=== PATIENT | female | born 1935 | race Caucasian/White ===

== ENCOUNTER → 2016-12-18 | Outpatient (CLI) | payer MEDICARE, MEDICAID ==
[~2016-12-18] MED LIST: ALPR0.25 PO; ASPI-650 PO; ENAL5TAB PO; GABA100C8 PO; HYDR-3138 PO; LACT1CAP40 PO; LEVO250T23 PO; LUTE20TA PO; MULT-82 PO; OMEP-110 PO; ONDA4TAB7 PO; POLY17PO5 PO; SIMV10TA PO; TIOT18CA IH
== END | disposition home or self-care (01) ==
LOC: CFH 09:50
PROVIDERS: ATTEND Family Medicine
DX: Z13.820 Encounter for screening for osteoporosis (principal); M81.0 Age-related osteoporosis without current pathological fracture; N95.8 Other specified menopausal and perimenopausal disorders
CPT/HCPCS: 77080

== ENCOUNTER → 2017-04-09 | Outpatient (CLI) | payer MEDICARE, MEDICAID ==
[~2017-04-09] MED LIST changes: +GABA-826 PO; -GABA100C8 PO; -HYDR-3138 PO; +HYDR-3237 PO; +MULT-224 PO; -MULT-82 PO
== END | disposition home or self-care (01) ==
LOC: CARD 08:18
PROVIDERS: ATTEND Family Medicine
DX: R53.1 Weakness (principal); M25.569 Pain in unspecified knee; J44.9 Chronic obstructive pulmonary disease, unspecified; I10 Essential (primary) hypertension
CPT/HCPCS: 95886; 95908

== ENCOUNTER → 2017-04-15 | Outpatient (CLI) | payer MEDICARE, MEDICAID | END | disposition home or self-care (01) | LOC: RAD 10:27 | PROVIDERS: ATTEND Family Medicine | DX: M85.88 Other specified disorders of bone density and structure, other site (principal) ==

== ENCOUNTER → 2018-02-22 | Outpatient (CLI) | payer MEDICARE, MEDICAID | END | disposition home or self-care (01) | LOC: CFH 07:39 | PROVIDERS: ATTEND Physician Assistant Medical | DX: R15.9 Full incontinence of feces (principal); R14.0 Abdominal distension (gaseous); K64.9 Unspecified hemorrhoids; Z90.49 Acquired absence of other specified parts of digestive tract | CPT/HCPCS: 74245 ==

== ENCOUNTER 2018-05-14 19:30 | Emergency (ER) | payer MEDICARE, MEDICAID ==
[~2018-05-14] VITALS: Ht 152.4 cm; Wt 46.0 kg
[2018-05-14 21:26] VITALS: BP 136/78
== END 2018-05-14 21:29 | disposition home or self-care (01) ==
LOC: ED 20:11
DX: S80.01XA Contusion of right knee, initial encounter (principal); S70.01XA Contusion of right hip, initial encounter; I10 Essential (primary) hypertension; J44.9 Chronic obstructive pulmonary disease, unspecified; K21.9 Gastro-esophageal reflux disease without esophagitis; Z88.5 Allergy status to narcotic agent; Z79.82 Long term (current) use of aspirin; W19.XXXA Unspecified fall, initial encounter; Y93.89 Activity, other specified; Y92.89 Other specified places as the place of occurrence of the external cause; Y99.8 Other external cause status
CPT/HCPCS: 70450; 71045; 72125; 99284

== ENCOUNTER 2018-10-26 12:59 | Emergency (ER) | payer MEDICARE, MEDICAID ==
[~2018-10-26] VITALS: Ht 152.4 cm; Wt 46.0 kg
[~2018-10-26 12:59] MED LIST changes: -MULT-224 PO; +MULT-642 PO
[2018-10-26 13:40] LABS: BASOPHILS # (AUTO) 0.03 x10^3/uL (0-0.1); BASOPHILS % (AUTO) 0 % (0-1); EOSINOPHILS # (AUTO) 0.17 x10^3/uL (0-0.4); EOSINOPHILS % (AUTO) 2 % (1-7); LYMPHOCYTES # (AUTO) 1.85 x10^3/uL (1-3.4); LYMPHOCYTES % (AUTO) 27 % (22-44); MD NO; MEAN CORPUSCULAR HGB CONC 32.8 g/dL (32.4-35.8); MEAN CORPUSCULAR VOLUME 88.3 fL (80-100); MEAN PLATELET VOLUME 7.2 fL (7.4-10.4); MONOCYTES # (AUTO) 0.51 x10^3/uL (0.2-0.8); MONOCYTES % (AUTO) 8 % (2-9); NEUTROPHILS # (AUTO) 4.27 x10^3/uL (1.8-6.8); NEUTROPHILS % (AUTO) 63 % (42-75); PLATELET COUNT 265 x10^3/uL (130-400); RED CELL DISTRIBUTION WIDTH 14.3 % (9.6-15.2)
[2018-10-26 13:50] LABS: ALBUMIN 3.7 g/dL (3.4-5.0); ANION GAP 5 mmol/L (5-15); CALCIUM 9.9 mg/dL (8.5-10.1); CHLORIDE 108 mmol/L (98-107); CREATININE 0.85 mg/dL (0.55-1.02)
--- NOTE | 2018-10-26 13:50 | NUR ---
FROM LOBBY TO ROOM AT THIS TIME
[2018-10-26] MEDS ORDERED: METHOCARBAMOL 750 MG TABLET ONE (14:27)
[2018-10-26] MEDS ORDERED: FENTANYL PF 100 MCG/2ML ONE ×2 (14:28→17:15)
[2018-10-26] MEDS ORDERED: METHOCARBAMOL 750 MG TABLET PO ONE (14:30)
[2018-10-26] MEDS: FENTANYL PF 100 MCG/2ML IVPush PRN ×2 (14:41→17:18)
--- NOTE | 2018-10-26 14:48 | NUR ---
PT. IS A & O X 4 WITH C/O ABD. PAIN THAT BEGAN WEDNESDAY. IV ACCESS WAS ESTABLISHED IN THE PT.'S RAC. PT. WAS MEDICATED FOR PAIN ORDERED. PT.'S IV WAS DIFFICULT TO FLUSH AND THE PT. COMPLAINED OF DISCOMFORT. RN RESTARTED PT.'S IV IN HER LAC. PT. IS AMBULATORY AND STATES MOST OF HER PAIN IS IN HER BACK. LUNGS ARE CTA. MM ARE PINK AND MOIST WITH PULSES +2 THROUGHOUT. PT.'S ABD. IS SOFT AND FLAT WITH BS + X 4 QUADS. PT. WAS TAKEN TO CT SCAN.
--- NOTE | 2018-10-26 15:58 | NUR ---
Pt transported on gurney to [facility]. All safety measures in place.
--- NOTE | 2018-10-26 16:36 | NUR ---
Pt back to room from CT. REED.
[2018-10-26] MEDS ORDERED: OMNIPAQUE 350 MG/ML, 100ML BOTTLE ONE (16:40)
--- NOTE | 2018-10-26 17:34 | NUR ---
Pt provided pain medication per EMAR after ambulating to restroom 1 person assist and having "too much back pain" to walk back. Pt placed back into [facility] with 2 person assist and lift. Pt discussed plan of care with doctor. Pt states she would like to "go home with pain medications" to ED MD.
--- NOTE | 2018-10-26 18:12 | NUR ---
Patient given discharge instructions and they have confirmed that they understand the instructions. Patient pushed to discharge in wheelchair. Pt left with discharge information, prescription, and all personal belongings. Pt has family coming to pick her up. Pt states she does not live alone and she has help at home.
[2018-10-26 18:13] VITALS: BP 150/83
== END 2018-10-26 18:15 | disposition home or self-care (01) ==
LOC: ED 15:57
DX: M51.34 Other intervertebral disc degeneration, thoracic region (principal); M51.37 Other intervertebral disc degeneration, lumbosacral region; R91.8 Other nonspecific abnormal finding of lung field; J44.9 Chronic obstructive pulmonary disease, unspecified; K21.9 Gastro-esophageal reflux disease without esophagitis; F41.1 Generalized anxiety disorder; I10 Essential (primary) hypertension; Z90.49 Acquired absence of other specified parts of digestive tract; Z90.710 Acquired absence of both cervix and uterus; Z88.6 Allergy status to analgesic agent; Z88.5 Allergy status to narcotic agent
CPT/HCPCS: 36415; 71045; 71275; 72110; 72128; 72131; 80048; 82040; 85025; 85379; 96374; 99284; J3010; Q9967

== ENCOUNTER 2018-11-02 06:03 | Day surgery (SDC) | payer MEDICARE, MEDICAID ==
[~2018-11-02] VITALS: Ht 149.9 cm; Wt 45.7 kg
[2018-11-02] MEDS ORDERED: SODIUM CHLORIDE 0.9% 1,000 ML IV SCH (06:34)
[2018-11-02 06:37] VITALS: BP 154/83
[2018-11-02] MEDS ORDERED: NALOXONE 1 MG/ML, 2ML ONE (07:54)
[2018-11-02] MEDS ORDERED: FLUMAZENIL 0.1 MG/1 ML, 5ML ONE (07:54)
[2018-11-02] MEDS ORDERED: FENTANYL PF 100 MCG/2ML ONE (07:54)
[2018-11-02] MEDS ORDERED: MIDAZOLAM 1 MG/ML, 5ML ONE (07:54)
== END 2018-11-02 11:45 | disposition home or self-care (01) ==
LOC: OUT 06:03
PROVIDERS: ATTEND Family Medicine
DX: C34.11 Malignant neoplasm of upper lobe, right bronchus or lung (principal); Z88.5 Allergy status to narcotic agent; J43.9 Emphysema, unspecified; K21.9 Gastro-esophageal reflux disease without esophagitis; I11.0 Hypertensive heart disease with heart failure; I50.9 Heart failure, unspecified; E78.5 Hyperlipidemia, unspecified; M81.0 Age-related osteoporosis without current pathological fracture; F41.9 Anxiety disorder, unspecified; F33.1 Major depressive disorder, recurrent, moderate; F07.81 Postconcussional syndrome; Z99.81 Dependence on supplemental oxygen; Z90.49 Acquired absence of other specified parts of digestive tract; Z90.710 Acquired absence of both cervix and uterus; Z98.890 Other specified postprocedural states; Z87.891 Personal history of nicotine dependence; Z79.899 Other long term (current) drug therapy; Z86.79 Personal history of other diseases of the circulatory system
CPT/HCPCS: 32405; 71045; 77012; 88305; 99156; 99157; J2250; J3010; J2310

== ENCOUNTER 2018-11-07 08:20 | Emergency (ER) | payer MEDICARE, MEDICAID ==
[~2018-11-07] VITALS: Ht 147.3 cm; Wt 44.4 kg
[2018-11-07] MEDS ORDERED: KETOROLAC 30 MG/1 ML IVPush ONE (09:00)
[2018-11-07] MEDS ORDERED: SODIUM CHLORIDE FLUSH 10ML SYR IVF ONE (09:00)
[2018-11-07] MEDS ORDERED: KETOROLAC 30 MG/1 ML ONE (09:24)
[2018-11-07 09:30] LABS: BASOPHILS # (AUTO) 0.03 x10^3/uL (0-0.1); BASOPHILS % (AUTO) 0 % (0-1); EOSINOPHILS # (AUTO) 0.16 x10^3/uL (0-0.4); EOSINOPHILS % (AUTO) 2 % (1-7); LYMPHOCYTES # (AUTO) 2.09 x10^3/uL (1-3.4); LYMPHOCYTES % (AUTO) 25 % (22-44); MD NO; MEAN CORPUSCULAR HEMOGLOBIN 28.8 pg (27.0-34.8); MEAN CORPUSCULAR HGB CONC 32.6 g/dL (32.4-35.8); MEAN CORPUSCULAR VOLUME 88.3 fL (80-100); MEAN PLATELET VOLUME 7.5 fL (7.4-10.4); MONOCYTES # (AUTO) 0.67 x10^3/uL (0.2-0.8); MONOCYTES % (AUTO) 8 % (2-9); NEUTROPHILS # (AUTO) 5.53 x10^3/uL (1.8-6.8); NEUTROPHILS % (AUTO) 65 % (42-75); PLATELET COUNT 278 x10^3/uL (130-400); RED BLOOD COUNT 5.08 x10^6/uL (3.82-5.3); RED CELL DISTRIBUTION WIDTH 13.9 % (9.6-15.2)
[2018-11-07 09:54] LABS: ALANINE AMINOTRANSFERASE 14 U/L (12-78); CALCIUM 10.1 mg/dL (8.5-10.1)
[2018-11-07 09:57] LABS: ALKALINE PHOSPHATASE 143 U/L (45-117); BILIRUBIN,TOTAL 0.4 mg/dL (0.2-1.0); TROPONIN I < 0.015 ng/mL (0.000-0.045)
[2018-11-07 10:06] LABS: ANION GAP 6 mmol/L (5-15); CHLORIDE 105 mmol/L (98-107)
--- NOTE | 2018-11-07 10:19 | NUR ---
REPORT FROM JOSEFINA DO. PT RESTING IN ROOM. VSS. ALL RESULTS BACK AT THIS TIME. CHART UP FOR RECHECK.
--- NOTE | 2018-11-07 10:30 | NUR ---
REPORT FROM DIEGO RN PATIENT [facility] C[facility] IN PL[facility]. WOB WNL, 98% ON RA. BREATH SOUNDS TO BASES BILATERALLY REPORTS CONTINED LATERAL CHEST PAIN AT 6/10-PROVIDER MADE AWARE UPDATED ON ESTIMATED POC
[2018-11-07] MEDS ORDERED: OMNIPAQUE 350 MG/ML, 75ML BOTTLE ONE (11:15)
--- NOTE | 2018-11-07 11:15 | NUR ---
TO CT SCAN. MORPHINE DELAYED PATIENT DENIES ACUTE PAIN AT THE MOMENT AND WILL BE UNMONITORED FOR SCAN
[2018-11-07] MEDS ORDERED: MORPHINE SULFATE 4 MG/ML, 1ML ONE (11:37)
--- NOTE | 2018-11-07 12:00 | NUR ---
SYRUP SHED SUPERVISOR MAKING ARRANGEMENTS WITH PATIENT FOR SAFE DISCHARGE PATIENT REPORTING PAIN NOW 7/[address] PRIOR TO DISCHARGE. TO DISCUSS WITH WITH
[2018-11-07] MEDS: MORPHINE SULFATE 4 MG/ML, 1ML IVPush PRN ×2 (12:06→12:07)
[2018-11-07] MEDS ORDERED: HYDROcodone/APAP 5/325 TABLET PO STA (12:13)
[2018-11-07] MEDS ORDERED: HYDROcodone/APAP 5/325 TABLET ONE (12:14)
--- NOTE | 2018-11-07 12:22 | NUR ---
PATIENT CALLED DAUGHTER TO COME PICK PATIENT UP [employer] TO MEDICATE PATIENT WITH 5MG OF NORCO FOR 7/10 LATERAL CHEST PAIN PATIENT NOT TAKING ANY NARCOTICS AT THIS TIME. DID TAKE 10MG OF PERCOCET FROM [id number] SO NOT NAIVE TO NARCOTICS
[2018-11-07 12:29] VITALS: BP 132/54
== END 2018-11-07 12:31 | disposition home or self-care (01) ==
LOC: ED 10:25
DX: R07.9 Chest pain, unspecified (principal); R07.1 Chest pain on breathing; R09.1 Pleurisy; J44.9 Chronic obstructive pulmonary disease, unspecified; K21.9 Gastro-esophageal reflux disease without esophagitis; F41.1 Generalized anxiety disorder; I10 Essential (primary) hypertension; E11.9 Type 2 diabetes mellitus without complications; Z88.6 Allergy status to analgesic agent; Z88.5 Allergy status to narcotic agent; Z90.49 Acquired absence of other specified parts of digestive tract; Z90.710 Acquired absence of both cervix and uterus; Z96.649 Presence of unspecified artificial hip joint
CPT/HCPCS: 36415; 71045; 71275; 80053; 84484; 85025; 93005; 96374; 99284; J1885; Q9967

== ENCOUNTER → 2018-11-15 | Outpatient (CLI) | payer MEDICARE, MEDICAID | END | disposition home or self-care (01) | LOC: PETCFH 12:46 | PROVIDERS: ATTEND Family Medicine | DX: C34.91 Malignant neoplasm of unspecified part of right bronchus or lung (principal) | CPT/HCPCS: 78815; A9552 ==

== ENCOUNTER 2018-12-08 12:47 | Outpatient (CLI) | payer MEDICARE, MEDICAID ==
[~2018-12-08 12:47] MED LIST changes: +GADOBUTROL 7.5 MMOL/7.5 ML PFS ONE
== END 2018-12-08 23:59 | disposition home or self-care (01) ==
LOC: CFH 12:47
PROVIDERS: ATTEND Internal Medicine Hematology & Oncology
DX: C34.31 Malignant neoplasm of lower lobe, right bronchus or lung (principal); G31.9 Degenerative disease of nervous system, unspecified
CPT/HCPCS: 70553; A9585

== ENCOUNTER → 2019-05-12 | Outpatient (CLI) | payer MEDICARE, MEDICAID ==
[~2019-05-12] MED LIST changes: -GADOBUTROL 7.5 MMOL/7.5 ML PFS ONE
== END | disposition home or self-care (01) ==
LOC: ROC 07:19
PROVIDERS: ATTEND Radiology Radiation Oncology
DX: Z08 Encounter for follow-up examination after completed treatment for malignant neoplasm (principal); R91.1 Solitary pulmonary nodule; Z88.5 Allergy status to narcotic agent; Z90.49 Acquired absence of other specified parts of digestive tract; Z85.118 Personal history of other malignant neoplasm of bronchus and lung
CPT/HCPCS: G0463

== ENCOUNTER → 2019-06-20 | Outpatient (CLI) | payer MEDICARE, MEDICAID | END | disposition home or self-care (01) | LOC: CFH 08:01 | PROVIDERS: ATTEND Radiology Radiation Oncology | DX: Z08 Encounter for follow-up examination after completed treatment for malignant neoplasm (principal); C34.90 Malignant neoplasm of unspecified part of unspecified bronchus or lung; I10 Essential (primary) hypertension; J98.2 Interstitial emphysema; Z92.3 Personal history of irradiation | CPT/HCPCS: 71250 ==

== ENCOUNTER → 2019-06-26 | Outpatient (CLI) | payer MEDICARE, MEDICAID | END | disposition home or self-care (01) | LOC: ROC 09:10 | PROVIDERS: ATTEND Radiology Radiation Oncology | DX: C34.31 Malignant neoplasm of lower lobe, right bronchus or lung (principal); J43.9 Emphysema, unspecified; J84.9 Interstitial pulmonary disease, unspecified; R91.8 Other nonspecific abnormal finding of lung field; Z79.899 Other long term (current) drug therapy; Z79.891 Long term (current) use of opiate analgesic; Z88.5 Allergy status to narcotic agent | CPT/HCPCS: G0463 ==

== ENCOUNTER → 2019-07-13 | Outpatient (CLI) | payer MEDICARE, MEDICAID | END | disposition home or self-care (01) | LOC: PETCFH 13:27 | PROVIDERS: ATTEND Radiology Radiation Oncology | DX: C34.31 Malignant neoplasm of lower lobe, right bronchus or lung (principal); C77.1 Secondary and unspecified malignant neoplasm of intrathoracic lymph nodes; M47.892 Other spondylosis, cervical region; Z90.49 Acquired absence of other specified parts of digestive tract | CPT/HCPCS: 78815; A9552 ==

== ENCOUNTER 2019-07-19 07:19 | Day surgery (SDC) | payer MEDICARE, MEDICAID ==
[~2019-07-19] VITALS: Ht 149.9 cm; Wt 44.6 kg
[2019-07-19 08:39] VITALS: BP 180/70
[2019-07-19] MEDS ORDERED: SODIUM CHLORIDE 0.9% 1,000 ML IV SCH (09:00)
[2019-07-19] MEDS ORDERED: PLEASE ENTER ALLERGIES MC SCH (09:00)
[2019-07-19] MEDS ORDERED: NALOXONE 1 MG/ML, 2ML ONE (09:24)
[2019-07-19] MEDS ORDERED: FENTANYL PF 100 MCG/2ML ONE (09:24)
[2019-07-19] MEDS ORDERED: MIDAZOLAM 1 MG/ML, 5ML ONE ×2 (09:24)
[2019-07-19] MEDS ORDERED: FLUMAZENIL 0.1 MG/1 ML, 5ML ONE (09:24)
== END 2019-07-19 13:00 | disposition home or self-care (01) ==
LOC: RAD 07:19 → OUT 13:00
PROVIDERS: ATTEND Radiology Radiation Oncology
DX: C34.31 Malignant neoplasm of lower lobe, right bronchus or lung (principal); I10 Essential (primary) hypertension; Z79.891 Long term (current) use of opiate analgesic; Z79.899 Other long term (current) drug therapy; Z87.891 Personal history of nicotine dependence; Z99.81 Dependence on supplemental oxygen
CPT/HCPCS: 32405; 71045; 77012; 88305; 88341; 88342; 88360; 99156; 99157; J2250; J3010; J7030; J2310

== ENCOUNTER 2019-07-19 13:16 | Outpatient (CLI) | payer MEDICARE, MEDICAID | END 2019-07-19 23:59 | disposition home or self-care (01) | LOC: CFH 13:16 | PROVIDERS: ATTEND Radiology Radiation Oncology | DX: Z12.31 Encounter for screening mammogram for malignant neoplasm of breast (principal); N64.89 Other specified disorders of breast | CPT/HCPCS: 77063; 77067 ==

== ENCOUNTER 2019-07-27 09:55 | Outpatient (CLI) | payer MEDICARE, MEDICAID | END 2019-07-27 23:59 | disposition home or self-care (01) | LOC: ROC 09:55 | PROVIDERS: ATTEND Radiology Radiation Oncology | DX: C34.31 Malignant neoplasm of lower lobe, right bronchus or lung (principal); Z92.3 Personal history of irradiation | CPT/HCPCS: 99213; G0463 ==

== ENCOUNTER → 2019-09-04 | Outpatient (CLI) | payer MEDICARE, MEDICAID ==
[~2019-09-04] MED LIST changes: +OMNIPAQUE 350 MG/ML, 100ML BOTTLE ONE
== END | disposition home or self-care (01) ==
LOC: CFH 14:16
PROVIDERS: ATTEND Radiology Radiation Oncology
DX: S22.069A Unspecified fracture of T7-T8 vertebra, initial encounter for closed fracture (principal); X58.XXXA Exposure to other specified factors, initial encounter; Y93.89 Activity, other specified; Y92.89 Other specified places as the place of occurrence of the external cause; Y99.8 Other external cause status; R06.02 Shortness of breath; I77.810 Thoracic aortic ectasia; R59.9 Enlarged lymph nodes, unspecified; Z85.118 Personal history of other malignant neoplasm of bronchus and lung
CPT/HCPCS: 71275; 82565; Q9967

== ENCOUNTER 2019-10-30 11:50 | Outpatient (CLI) | payer MEDICARE, MEDICAID ==
[~2019-10-30 11:50] MED LIST changes: -OMNIPAQUE 350 MG/ML, 100ML BOTTLE ONE
== END 2019-10-30 23:59 | disposition home or self-care (01) ==
LOC: CFH 11:50
PROVIDERS: ATTEND Radiology Radiation Oncology
DX: C34.31 Malignant neoplasm of lower lobe, right bronchus or lung (principal); I10 Essential (primary) hypertension; R91.8 Other nonspecific abnormal finding of lung field; R59.0 Localized enlarged lymph nodes; J43.9 Emphysema, unspecified; R91.1 Solitary pulmonary nodule
CPT/HCPCS: 71250

== ENCOUNTER 2019-12-24 10:09 | Emergency (ER) | payer MEDICARE, MEDICAID ==
[~2019-12-24] VITALS: Ht 149.9 cm; Wt 33.0 kg
[~2019-12-24 10:09] MED LIST changes: +CEFD300C37 PO; +CHOL200078 PO; +OXYC5TAB3 PO
--- NOTE | 2019-12-24 10:30 | NUR ---
PT PLACED ON BP CUFF, PULSE OX. WARM BLANKET PROVIDED, CALL LIGHT WITHIN REACH.
[2019-12-24 10:56] LABS: BASOPHILS # (AUTO) 0.02 x10^3/uL (0-0.1); BASOPHILS % (AUTO) 0 % (0-1); EOSINOPHILS # (AUTO) 0.04 x10^3/uL (0-0.4); EOSINOPHILS % (AUTO) 1 % (1-7); LYMPHOCYTES # (AUTO) 0.54 x10^3/uL (1-3.4); LYMPHOCYTES % (AUTO) 13 % (22-44); MD NO; MEAN CORPUSCULAR HEMOGLOBIN 29.1 pg (27.0-34.8); MEAN CORPUSCULAR HGB CONC 32.5 g/dL (32.4-35.8); MEAN CORPUSCULAR VOLUME 89.6 fL (80-100); MEAN PLATELET VOLUME 6.7 fL (7.4-10.4); MONOCYTES # (AUTO) 0.34 x10^3/uL (0.2-0.8); MONOCYTES % (AUTO) 8 % (2-9); NEUTROPHILS % (AUTO) 78 % (42-75); PLATELET COUNT 218 x10^3/uL (130-400); RED BLOOD COUNT 4.15 x10^6/uL (3.82-5.3); RED CELL DISTRIBUTION WIDTH 15.6 % (9.6-15.2)
[2019-12-24] MEDS ORDERED: ONDANSETRON 2MG/ML, 2ML IVPush ONE (11:00)
[2019-12-24] MEDS ORDERED: MORPHINE SULFATE 4 MG/ML, 1ML IVPush PRN (11:00)
[2019-12-24] MEDS ORDERED: SODIUM CHLORIDE FLUSH 10ML SYR IVF ONE (11:00)
[2019-12-24 11:08] LABS: ALANINE AMINOTRANSFERASE 9 U/L (12-78); ALBUMIN 2.8 g/dL (3.4-5.0); ANION GAP 8 mmol/L (5-15); CALCIUM 9.1 mg/dL (8.5-10.1); CHLORIDE 110 mmol/L (98-107)
[2019-12-24 11:11] LABS: ALKALINE PHOSPHATASE 110 U/L (45-117); BILIRUBIN,TOTAL 0.6 mg/dL (0.2-1.0); TOTAL PROTEIN 6.5 g/dL (6.4-8.2)
[2019-12-24] MEDS ORDERED: MORPHINE SULFATE 4 MG/ML, 1ML ONE (11:13)
[2019-12-24] MEDS ORDERED: ONDANSETRON 2MG/ML, 2ML ONE (11:14)
--- NOTE | 2019-12-24 11:30 | NUR ---
PT MEDICATED PER ERP ORDER FOR 12/[address] CATH FOR UA PERFORMED, SPECIMEN WALKED TO LAB. PT TO CT.
[2019-12-24] MEDS ORDERED: OMNIPAQUE 350 MG/ML, 75ML BOTTLE ONE (11:40)
[2019-12-24 11:52] LABS: MICROSCOPIC INDICATED
--- NOTE | 2019-12-24 12:11 | NUR ---
PT DECREASED TO 10/19. MED REQUEST TO PHARMACY. PT UPDATED ON POC. VSS/UPDATED IN COMPUTER.
[2019-12-24 12:12] VITALS: BP 132/71
[2019-12-24] MEDS ORDERED: FOSFOMYCIN 3 GM PACKET PO ONE (12:30)
== END 2019-12-24 12:32 | disposition home or self-care (01) ==
LOC: ED 12:03
DX: N30.00 Acute cystitis without hematuria (principal); K59.00 Constipation, unspecified; I10 Essential (primary) hypertension; E11.9 Type 2 diabetes mellitus without complications; J44.9 Chronic obstructive pulmonary disease, unspecified; K21.9 Gastro-esophageal reflux disease without esophagitis; Z90.89 Acquired absence of other organs; Z90.49 Acquired absence of other specified parts of digestive tract; Z90.710 Acquired absence of both cervix and uterus; Z96.649 Presence of unspecified artificial hip joint
CPT/HCPCS: 36415; 74177; 80053; 81001; 83690; 85025; 87077; 87086; 87186; 96374; 96375; 99285; J2270; J2405; Q9967; 99284

== ENCOUNTER 2020-01-07 17:28 | Emergency (ER) | payer MEDICARE, MEDICAID ==
[~2020-01-07] VITALS: Ht 149.9 cm; Wt 40.0 kg
[~2020-01-07 17:28] MED LIST changes: +METH500T7 PO; +SENN1TAB94 PO
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
[2020-01-07 18:20] LABS: BASOPHILS # (AUTO) 0.01 x10^3/uL (0-0.1); BASOPHILS % (AUTO) 0 % (0-1); EOSINOPHILS # (AUTO) 0.07 x10^3/uL (0-0.4); EOSINOPHILS % (AUTO) 2 % (1-7); LYMPHOCYTES # (AUTO) 0.74 x10^3/uL (1-3.4); LYMPHOCYTES % (AUTO) 16 % (22-44); MD NO; MEAN CORPUSCULAR HEMOGLOBIN 28.9 pg (27.0-34.8); MEAN CORPUSCULAR HGB CONC 32.7 g/dL (32.4-35.8); MEAN CORPUSCULAR VOLUME 88.4 fL (80-100); MEAN PLATELET VOLUME 7.3 fL (7.4-10.4); MONOCYTES # (AUTO) 0.51 x10^3/uL (0.2-0.8); MONOCYTES % (AUTO) 11 % (2-9); NEUTROPHILS # (AUTO) 3.44 x10^3/uL (1.8-6.8); NEUTROPHILS % (AUTO) 72 % (42-75); PLATELET COUNT 190 x10^3/uL (130-400); RED BLOOD COUNT 3.88 x10^6/uL (3.82-5.3); RED CELL DISTRIBUTION WIDTH 16.3 % (9.6-15.2)
[2020-01-07 18:25] LABS: ALANINE AMINOTRANSFERASE 11 U/L (12-78); ALBUMIN 2.8 g/dL (3.4-5.0); ANION GAP 7 mmol/L (5-15); CHLORIDE 111 mmol/L (98-107); CREATININE 0.72 mg/dL (0.55-1.02)
[2020-01-07 18:30] LABS: ALKALINE PHOSPHATASE 92 U/L (45-117); BILIRUBIN,TOTAL 0.3 mg/dL (0.2-1.0); TOTAL PROTEIN 6.3 g/dL (6.4-8.2)
--- NOTE | 2020-01-07 18:40 | NUR ---
ALL TESTS RESULTED. PT IS UP FOR RECHECK AT THIS TIME.
[2020-01-07 18:42] VITALS: BP 140/68
--- NOTE | 2020-01-07 18:54 | NUR ---
REPORT GIVEN TO MADINA ROCHA.
[2020-01-07] MEDS ORDERED: OXYcodone/APAP 5/325MG TABLET PO ONE (19:00)
--- NOTE | 2020-01-07 19:04 | NUR ---
Note kris in [facility] - 01/07/20 at 1906 by [email or web address] Report received from JOSEFINA Zuniga. This RN to assume care. Patient resting in hospital bed at this time with no complaints.
--- NOTE | 2020-01-07 19:06 | NUR ---
Report received from JOSEFINA Zuniga. This Rn to assume care. Meds ordered for patient.
[2020-01-07] MEDS ORDERED: KETOROLAC 30 MG/1 ML ONE (19:10)
[2020-01-07] MEDS ORDERED: OXYcodone/APAP 5/325MG TABLET ONE (19:10)
[2020-01-07] MEDS ORDERED: KETOROLAC 30 MG/1 ML IM ONE (20:00)
== END 2020-01-07 20:24 | disposition home or self-care (01) ==
LOC: ED 20:03
DX: R07.89 Other chest pain (principal); R06.02 Shortness of breath; M54.9 Dorsalgia, unspecified; R94.31 Abnormal electrocardiogram [ECG] [EKG]; I10 Essential (primary) hypertension; E11.9 Type 2 diabetes mellitus without complications; J44.9 Chronic obstructive pulmonary disease, unspecified; K21.9 Gastro-esophageal reflux disease without esophagitis; Z90.89 Acquired absence of other organs; Z90.49 Acquired absence of other specified parts of digestive tract; Z90.710 Acquired absence of both cervix and uterus; Z96.649 Presence of unspecified artificial hip joint
CPT/HCPCS: 36415; 71045; 80053; 83880; 84484; 85025; 93005; 96372; 99285; J1885

== ENCOUNTER → 2020-01-19 | Outpatient (CLI) | payer MEDICARE, MEDICAID | END | disposition home or self-care (01) | LOC: CFH 09:53 | PROVIDERS: ATTEND Radiology Radiation Oncology | DX: C34.31 Malignant neoplasm of lower lobe, right bronchus or lung (principal); J43.2 Centrilobular emphysema; R91.1 Solitary pulmonary nodule; J84.10 Pulmonary fibrosis, unspecified | CPT/HCPCS: 71250 ==

== ENCOUNTER 2020-01-24 07:47 | Outpatient (CLI) | payer MEDICARE, MEDICAID | END 2020-01-24 23:59 | disposition home or self-care (01) | LOC: ROC 07:47 | PROVIDERS: ATTEND Radiology Radiation Oncology | DX: Z08 Encounter for follow-up examination after completed treatment for malignant neoplasm (principal); Z92.3 Personal history of irradiation; Z85.118 Personal history of other malignant neoplasm of bronchus and lung | CPT/HCPCS: 99213; G0463 ==

== ENCOUNTER 2020-02-05 12:52 | Outpatient (CLI) | payer MEDICARE, MEDICAID ==
[~2020-02-05 12:52] MED LIST changes: -ENAL5TAB PO; +ENAL5TAB10 PO
[2020-02-05] MEDS ORDERED: GADOTERATE 7.5 MMOL/15 ML SYR ONE (13:52)
[2020-04-14] MEDS ORDERED: ACID1TAB PO (22:59)
[2020-04-14] MEDS ORDERED: NAPR-685 PO (22:59)
[2020-04-15] MEDS ORDERED: TRAM50TA2 PO (04:06)
[2020-04-15] MEDS ORDERED: OXYC5TAB3 PO (04:06)
[2020-04-15] MEDS ORDERED: ENAL20TA9 PO (04:06)
[2020-04-15] MEDS ORDERED: GABA-826 PO (04:10)
== END 2020-02-05 23:59 | disposition home or self-care (01) ==
LOC: RAD 12:52
PROVIDERS: ATTEND Neurological Surgery
DX: M48.54XA Collapsed vertebra, not elsewhere classified, thoracic region, initial encounter for fracture (principal); M40.294 Other kyphosis, thoracic region; J98.4 Other disorders of lung
CPT/HCPCS: 72147; A9575

== ENCOUNTER 2020-02-14 10:24 | Emergency (ER) | payer MEDICARE, MEDICAID ==
[~2020-02-14] VITALS: Ht 149.9 cm; Wt 36.0 kg
[~2020-02-14 10:24] MED LIST changes: +ENAL5TAB PO; -ENAL5TAB10 PO
--- NOTE | 2020-02-14 10:50 | NUR ---
pump rebuilder note: c collar applied in triage, ekg completed in triage.
--- NOTE | 2020-02-14 11:04 | NUR ---
DIRECTOR DANCE: PT TO ROOM FROM LOBBY VIA W/C
[2020-02-14] MEDS ORDERED: SODIUM CHLORIDE FLUSH 10ML SYR IVF ONE (12:00)
[2020-02-14] MEDS ORDERED: ONDANSETRON 2MG/ML, 2ML IVPush ONE (12:00)
[2020-02-14] MEDS ORDERED: MORPHINE SULFATE 4 MG/ML, 1ML IVPush PRN (12:00)
[2020-02-14 12:11] LABS: BASOPHILS # (AUTO) 0.02 x10^3/uL (0-0.1); BASOPHILS % (AUTO) 0 % (0-1); EOSINOPHILS # (AUTO) 0.08 x10^3/uL (0-0.4); EOSINOPHILS % (AUTO) 1 % (1-7); LYMPHOCYTES # (AUTO) 0.76 x10^3/uL (1-3.4); LYMPHOCYTES % (AUTO) 11 % (22-44); MD NO; MEAN CORPUSCULAR HEMOGLOBIN 28.9 pg (27.0-34.8); MEAN CORPUSCULAR HGB CONC 31.7 g/dL (32.4-35.8); MEAN PLATELET VOLUME 7.3 fL (7.4-10.4); MONOCYTES # (AUTO) 0.48 x10^3/uL (0.2-0.8); MONOCYTES % (AUTO) 7 % (2-9); NEUTROPHILS % (AUTO) 80 % (42-75); PLATELET COUNT 165 x10^3/uL (130-400); RED BLOOD COUNT 4.35 x10^6/uL (3.82-5.3); RED CELL DISTRIBUTION WIDTH 15.7 % (9.6-15.2)
[2020-02-14 12:18] LABS: ALANINE AMINOTRANSFERASE 14 U/L (12-78); ALBUMIN 3.7 g/dL (3.4-5.0); ANION GAP 4 mmol/L (5-15); CALCIUM 9.4 mg/dL (8.5-10.1); CHLORIDE 107 mmol/L (98-107)
[2020-02-14 12:21] LABS: ALKALINE PHOSPHATASE 100 U/L (45-117); BILIRUBIN,TOTAL 0.6 mg/dL (0.2-1.0); CREATININE 0.94 mg/dL (0.55-1.02); TOTAL PROTEIN 7.6 g/dL (6.4-8.2)
[2020-02-14] MEDS ORDERED: ONDANSETRON 2MG/ML, 2ML ONE (12:49)
[2020-02-14] MEDS ORDERED: MORPHINE SULFATE 4 MG/ML, 1ML ONE (12:49)
--- NOTE | 2020-02-14 13:49 | NUR ---
TASK RN: PT BACK FROM XR/CT. PT STATES SHE HAD GLD LAST NOC AFTER PT HAD SUDDEN ONSET OF VERTIGO/BLURRED VISION. STATES SHE HAS BACK PAIN, NECK PAIN, R HIP PAIN. DENIES HITTING HEAD/LOC. PT DENIES BEING ON BLOOD THINNERS. PT RESTING ON GURNEY. NADN. MONITORS IN PLACE. WARM BLANKET PROVIDED. PIV INITIATED AND PT MEDICATED PER SEP.
[2020-02-14 14:28] VITALS: BP 129/59
--- NOTE | 2020-02-14 14:41 | NUR ---
PT UNSURE OF MEDICATION DOSAGES.
== END 2020-02-14 14:54 | disposition home or self-care (01) ==
LOC: ED 11:43
DX: S76.111A Strain of right quadriceps muscle, fascia and tendon, initial encounter (principal); M54.2 Cervicalgia; R42 Dizziness and giddiness; I10 Essential (primary) hypertension; E11.9 Type 2 diabetes mellitus without complications; K21.9 Gastro-esophageal reflux disease without esophagitis; J44.9 Chronic obstructive pulmonary disease, unspecified; Z90.89 Acquired absence of other organs; Z90.49 Acquired absence of other specified parts of digestive tract; Z97.10 Presence of artificial limb (complete) (partial), unspecified; Z87.891 Personal history of nicotine dependence; W18.30XA Fall on same level, unspecified, initial encounter; Y93.89 Activity, other specified; Y92.009 Unspecified place in unspecified non-institutional (private) residence as the place of occurrence of the external cause; Y99.8 Other external cause status
CPT/HCPCS: 36415; 72125; 72190; 80053; 85025; 93005; 96374; 96375; 99285; J2270; J2405

== ENCOUNTER 2020-04-12 07:36 | Day surgery (SDC) | payer MEDICARE, MEDICAID ==
[~2020-04-12] VITALS: Ht 149.9 cm; Wt 38.7 kg
[~2020-04-12 07:36] MED LIST changes: -ENAL5TAB PO; +ENAL5TAB10 PO
[2020-04-12 08:28] VITALS: BP 161/82
[2020-04-12] MEDS ORDERED: SODIUM CHLORIDE 0.9% 1,000 ML IV SCH (08:30)
[2020-04-12] MEDS ORDERED: LIDOCAINE 1%, 10ML ONE (09:47)
[2020-04-12] MEDS ORDERED: FLUMAZENIL 0.1 MG/1 ML, 5ML ONE (09:50)
[2020-04-12] MEDS ORDERED: FENTANYL PF 100 MCG/2ML ONE (09:50)
[2020-04-12] MEDS ORDERED: NALOXONE 1 MG/ML, 2ML ONE (09:50)
[2020-04-12] MEDS ORDERED: MIDAZOLAM 1 MG/ML, 5ML ONE (09:50)
[2020-04-14] MEDS ORDERED: NAPR-685 PO (22:59)
[2020-04-14] MEDS ORDERED: ACID1TAB PO (22:59)
[2020-04-15] MEDS ORDERED: OXYC5TAB3 PO (04:06)
[2020-04-15] MEDS ORDERED: ENAL20TA9 PO (04:06)
[2020-04-15] MEDS ORDERED: TRAM50TA2 PO (04:06)
[2020-04-15] MEDS ORDERED: GABA-826 PO (04:10)
== END 2020-04-12 11:15 | disposition home or self-care (01) ==
LOC: OUT 07:36
PROVIDERS: ATTEND Radiology Radiation Oncology
DX: M89.9 Disorder of bone, unspecified (principal); C34.31 Malignant neoplasm of lower lobe, right bronchus or lung; I10 Essential (primary) hypertension; J44.9 Chronic obstructive pulmonary disease, unspecified; Z99.81 Dependence on supplemental oxygen
CPT/HCPCS: 20225; 77002; 88307; 88311; 88333; 99156; J2250; J3010; J7030; J2310

== ENCOUNTER → 2020-05-03 | Outpatient (CLI) | payer MEDICARE, MEDICAID ==
[~2020-05-03] MED LIST changes: +ACET325T26 PO; +ACID1TAB PO; +CALC1TAB68 PO; +DICL100G25 TP; +ENAL20TA9 PO; +LIDO700A20 TD; +NAPR-685 PO; +TRAM50TA2 PO
== END | disposition home or self-care (01) ==
LOC: ROC 07:20
PROVIDERS: ATTEND Radiology Radiation Oncology
DX: C34.31 Malignant neoplasm of lower lobe, right bronchus or lung (principal); M81.0 Age-related osteoporosis without current pathological fracture; J44.9 Chronic obstructive pulmonary disease, unspecified; J96.10 Chronic respiratory failure, unspecified whether with hypoxia or hypercapnia; K21.9 Gastro-esophageal reflux disease without esophagitis; I10 Essential (primary) hypertension; E11.9 Type 2 diabetes mellitus without complications; Z87.891 Personal history of nicotine dependence; Z96.649 Presence of unspecified artificial hip joint; Z99.81 Dependence on supplemental oxygen; Z90.710 Acquired absence of both cervix and uterus; Z90.49 Acquired absence of other specified parts of digestive tract
CPT/HCPCS: 99213; G0463

== ENCOUNTER → 2020-06-17 | Outpatient (CLI) | payer MEDICARE, MEDICAID | END | disposition home or self-care (01) | LOC: CFH 11:21 | PROVIDERS: ATTEND Nurse Practitioner Family | DX: R91.8 Other nonspecific abnormal finding of lung field (principal); J44.1 Chronic obstructive pulmonary disease with (acute) exacerbation; J84.10 Pulmonary fibrosis, unspecified; Q79.1 Other congenital malformations of diaphragm | CPT/HCPCS: 71046 ==

== ENCOUNTER 2020-08-15 10:06 | Outpatient (CLI) | payer MEDICARE, MEDICAID ==
[~2020-08-15 10:06] MED LIST changes: +ASPI-1026 PO; -ASPI-650 PO; +METH-639 PO; -METH500T7 PO; -OXYC5TAB3 PO; +OXYC5TAB98 PO
== END 2020-08-15 23:59 | disposition home or self-care (01) ==
LOC: CFH 10:06
PROVIDERS: ATTEND Student in an Organized Health Care Education/Training Program
DX: Z12.31 Encounter for screening mammogram for malignant neoplasm of breast (principal); R23.4 Changes in skin texture
CPT/HCPCS: 77063; 77067

== ENCOUNTER → 2020-08-21 | Outpatient (CLI) | payer MEDICARE, MEDICAID | END | disposition home or self-care (01) | LOC: CFH 10:25 | PROVIDERS: ATTEND Radiology Radiation Oncology | DX: C34.31 Malignant neoplasm of lower lobe, right bronchus or lung (principal); R91.1 Solitary pulmonary nodule; J43.2 Centrilobular emphysema; I70.0 Atherosclerosis of aorta; I25.10 Atherosclerotic heart disease of native coronary artery without angina pectoris; M48.54XA Collapsed vertebra, not elsewhere classified, thoracic region, initial encounter for fracture | CPT/HCPCS: 71250 ==

== ENCOUNTER 2020-09-05 08:11 | Outpatient (CLI) | payer MEDICARE, MEDICAID | END 2020-09-05 23:59 | disposition home or self-care (01) | LOC: ROC 08:11 | PROVIDERS: ATTEND Radiology Radiation Oncology | DX: Z08 Encounter for follow-up examination after completed treatment for malignant neoplasm (principal); Z85.118 Personal history of other malignant neoplasm of bronchus and lung; I25.10 Atherosclerotic heart disease of native coronary artery without angina pectoris | CPT/HCPCS: 99213; G0463 ==

== ENCOUNTER 2020-10-15 16:30 | Emergency (ER) | payer MEDICARE, MEDICAID ==
[~2020-10-15] VITALS: Ht 124.5 cm; Wt 44.0 kg
[~2020-10-15 16:30] MED LIST changes: -LACT1CAP40 PO; +LACT1CAP45 PO
[2020-10-15] MEDS ORDERED: ONDANSETRON 2MG/ML, 2ML ONE (16:54)
[2020-10-15] MEDS ORDERED: FAMOTIDINE 20 MG/2 ML ONE (16:55)
[2020-10-15] MEDS ORDERED: MAALOX/HYOSCYAMINE/LIDOCAINE 45 ML BTL ONE (16:55)
--- NOTE | 2020-10-15 16:58 | NUR ---
PT OFF THE FLOOR TO RADIOLOGY
[2020-10-15] MEDS ORDERED: SODIUM CHLORIDE FLUSH 10ML SYR IVF ONE (17:00)
[2020-10-15] MEDS ORDERED: FAMOTIDINE 20 MG/2 ML IVPush ONE (17:00)
[2020-10-15] MEDS ORDERED: SODIUM CHLORIDE 0.9% 1,000ML IVBOLUS ONE (17:00)
[2020-10-15] MEDS ORDERED: ONDANSETRON 2MG/ML, 2ML IVPush ONE (17:00)
[2020-10-15] MEDS ORDERED: MAALOX/HYOSCYAMINE/LIDOCAINE 45 ML BTL PO ONE (17:00)
[2020-10-15 17:31] LABS: BASOPHILS % (AUTO) 0 % (0-1); EOSINOPHILS % (AUTO) 0 % (1-7); LYMPHOCYTES % (AUTO) 6 % (22-44); MEAN CORPUSCULAR HEMOGLOBIN 29.2 pg (27.0-34.8); MEAN CORPUSCULAR HGB CONC 33.3 g/dL (32.4-35.8); MEAN PLATELET VOLUME 7.4 fL (7.4-10.4); MONOCYTES % (AUTO) 7 % (2-9); NEUTROPHILS % (AUTO) 87 % (42-75); PLATELET COUNT 129 x10^3/uL (130-400); RED BLOOD COUNT 4.07 x10^6/uL (3.82-5.3); RED CELL DISTRIBUTION WIDTH 15.3 % (9.6-15.2)
[2020-10-15 17:46] LABS: ALANINE AMINOTRANSFERASE 12 U/L (12-78); ALBUMIN 3.2 g/dL (3.4-5.0); ANION GAP 8 mmol/L (5-15); CALCIUM 8.9 mg/dL (8.5-10.1); CHLORIDE 111 mmol/L (98-107)
[2020-10-15 17:50] LABS: ALKALINE PHOSPHATASE 102 U/L (45-117); BILIRUBIN,TOTAL 0.6 mg/dL (0.2-1.0); TROPONIN I < 0.015 ng/mL (0.000-0.045)
--- NOTE | 2020-10-15 18:50 | NUR ---
REPORT FROM CECILIA, TRANSFER OF CARE
--- NOTE | 2020-10-15 19:09 | NUR ---
CATH UA OBTAINED PT TOLERATED WELL. DEREK URINE WALKED TO LAB AT THIS TIME
[2020-10-15 19:38] LABS: MICROSCOPIC INDICATED
[2020-10-15] MEDS ORDERED: MORPHINE SULFATE 4 MG/ML, 1ML ONE (20:34)
--- NOTE | 2020-10-15 20:50 | NUR ---
REPORT FROM JOSEFINA PETERSEN
[2020-10-15] MEDS ORDERED: MORPHINE SULFATE 4 MG/ML, 1ML IVPush ONE (21:00)
[2020-10-15] MEDS ORDERED: OMNIPAQUE 350 MG/ML, 100ML BOTTLE ONE (21:04)
[2020-10-15 22:10] VITALS: BP 128/66
--- NOTE | 2020-10-15 22:23 | NUR ---
CONTACTED [facility] FOR TRANSPORT OF PATIENT. PATIENT WAS REFUSED TRANSPORT. TAXI VOUCHER WILL BE GIVEN TO PATIENT.
== END 2020-10-15 22:51 | disposition home or self-care (01) ==
LOC: ED 18:41
DX: R10.13 Epigastric pain (principal); R11.2 Nausea with vomiting, unspecified; I10 Essential (primary) hypertension; J44.9 Chronic obstructive pulmonary disease, unspecified; K21.9 Gastro-esophageal reflux disease without esophagitis; R00.0 Tachycardia, unspecified; E11.9 Type 2 diabetes mellitus without complications; Z90.89 Acquired absence of other organs; Z90.49 Acquired absence of other specified parts of digestive tract; Z90.710 Acquired absence of both cervix and uterus; Z85.118 Personal history of other malignant neoplasm of bronchus and lung; Z79.899 Other long term (current) drug therapy
CPT/HCPCS: 36415; 74022; 74177; 76700; 80053; 81001; 83690; 84484; 85025; 87086; 93005; 96361; 96374; 96375; 99285; J2270; J2405; J7030; Q9967

== ENCOUNTER 2020-10-17 16:37 | Inpatient (IN) | payer MEDICARE, MEDICAID ==
[~2020-10-17] VITALS: Ht 149.9 cm; Wt 37.0 kg
[~2020-10-17 16:37] MED LIST changes: +LACT1CAP40 PO; -LACT1CAP45 PO
--- NOTE | 2020-10-17 16:55 | NUR ---
PIV PLACED, LABS DRAWN. PT CONNECTED TO MONITORING. CALL LIGHT IN REACH. WARM BLANKET PROVIDED. AWAITING ORDERS.
[2020-10-17 17:49] LABS: BASOPHILS % (AUTO) 0 % (0-1); EOSINOPHILS % (AUTO) 0 % (1-7); LYMPHOCYTES % (AUTO) 5 % (22-44); MEAN CORPUSCULAR HEMOGLOBIN 29.1 pg (27.0-34.8); MEAN PLATELET VOLUME 7.9 fL (7.4-10.4); MONOCYTES % (AUTO) 7 % (2-9); NEUTROPHILS % (AUTO) 88 % (42-75); PLATELET COUNT 168 x10^3/uL (130-400); RED BLOOD COUNT 4.39 x10^6/uL (3.82-5.3); RED CELL DISTRIBUTION WIDTH 14.8 % (9.6-15.2)
[2020-10-17 17:55] LABS: MD NO
[2020-10-17] MEDS ORDERED: ONDANSETRON 2MG/ML, 2ML IVPush ONE (18:00)
[2020-10-17 18:01] LABS: ALANINE AMINOTRANSFERASE 11 U/L (12-78); ALBUMIN 3.5 g/dL (3.4-5.0); ANION GAP 8 mmol/L (5-15); CALCIUM 9.6 mg/dL (8.5-10.1); CHLORIDE 106 mmol/L (98-107)
[2020-10-17 18:06] LABS: ALKALINE PHOSPHATASE 100 U/L (45-117); CREATININE 0.64 mg/dL (0.55-1.02); TOTAL PROTEIN 7.6 g/dL (6.4-8.2); TROPONIN I 0.023 ng/mL (0.000-0.045)
[2020-10-17] MEDS ORDERED: ONDANSETRON 2MG/ML, 2ML ONE (18:10)
--- NOTE | 2020-10-17 18:13 | NUR ---
MEDS ADMIN PER SEP.
[2020-10-17] MEDS ORDERED: SODIUM CHLORIDE FLUSH 10ML SYR IVF ONE (18:30)
[2020-10-17] MEDS ORDERED: OMNIPAQUE 350 MG/ML, 75ML BOTTLE ONE (19:05)
--- NOTE | 2020-10-17 19:13 | NUR ---
PT BACK FROM CT. PT TRANSFERRED INDEPENDENTLY TO BEDSIDE COMMODE. WARM BLANKETS PROVIDED. CALL LIGHT IN REACH.
--- NOTE | 2020-10-17 20:22 | NUR ---
ALL RESULTS ARE BACK AT THIS TIME. CHART UP FOR RECHECK.
--- NOTE | 2020-10-17 21:11 | NUR ---
REPORT GIVEN TO JULIA ROCHA. PT RTG TO ROOM 514
[2020-10-17] MEDS: D5%-0.9% NACL 1,000 ML IV SCH (21:30)
[2020-10-17] MEDS ORDERED: ONDANSETRON ODT 4 MG PO PRN (21:30)
[2020-10-17] MEDS ORDERED: ACETAMINOPHEN 325 MG TABLET PO PRN (21:30)
[2020-10-17] MEDS ORDERED: NITROGLYCERIN 0.4 MG BOTTLE (25 TABS) SL PRN (21:30)
[2020-10-17] MEDS ORDERED: hydrALAzine 20 MG/ML, 1ML IVPush PRN (21:30)
[2020-10-17] MEDS: CALCIUM/VITAMIN D3 250-125 TABLET PO SCH (21:30)
[2020-10-17] MEDS ORDERED: OXYcodone IR 5MG TABLET PO PRN (21:30)
[2020-10-17] MEDS ORDERED: DOCUSATE 100 MG CAPSULE PO PRN (21:30)
[2020-10-17] MEDS ORDERED: PROMETHAZINE 25 MG/ML, 1ML IM PRN (21:30)
[2020-10-17 22:06] VITALS: BP 151/75
[2020-10-17] MEDS: PANTOPRAZOLE 40 MG IV IVPush SCH (23:23)
[2020-10-17] MEDS: ENALAPRIL 20MG TABLET PO SCH (23:24)
[2020-10-17] MEDS: HEPARIN 5,000 UNITS/ML, 1ML SQ SCH (23:24)
[2020-10-17] MEDS: GABAPENTIN 100 MG CAPSULE PO SCH (23:25)
[2020-10-18 00:28] LABS: MICROSCOPIC AUTO
[2020-10-18 02:47] VITALS: BP 123/67
[2020-10-18 02:52] LABS: TROPONIN I 0.029 ng/mL (0.000-0.045)
[2020-10-18 05:16] LABS: BASOPHILS % (AUTO) 0 % (0-1); EOSINOPHILS % (AUTO) 0 % (1-7); LYMPHOCYTES % (AUTO) 14 % (22-44); MEAN CORPUSCULAR HEMOGLOBIN 29.3 pg (27.0-34.8); MEAN CORPUSCULAR HGB CONC 33.2 g/dL (32.4-35.8); MEAN PLATELET VOLUME 7.6 fL (7.4-10.4); MONOCYTES % (AUTO) 12 % (2-9); NEUTROPHILS % (AUTO) 74 % (42-75); PLATELET COUNT 149 x10^3/uL (130-400); RED CELL DISTRIBUTION WIDTH 14.9 % (9.6-15.2)
[2020-10-18 05:24] LABS: MD NO
[2020-10-18 05:29] LABS: CHLORIDE 109 mmol/L (98-107)
[2020-10-18 05:47] LABS: ALANINE AMINOTRANSFERASE 8 U/L (12-78); ALBUMIN 2.6 g/dL (3.4-5.0); ALKALINE PHOSPHATASE 73 U/L (45-117); ANION GAP 6 mmol/L (5-15); BILIRUBIN,TOTAL 0.7 mg/dL (0.2-1.0); CALCIUM 8.7 mg/dL (8.5-10.1); CHOL/HDL RATIO 2.5; CHOLESTEROL, TOTAL 128 mg/dL (140-239); CREATININE 0.69 mg/dL (0.55-1.02); HDL CHOL % 40 % (28-40); HDL CHOLESTEROL (DIRECT) 51 mg/dL (40-60); LDL CHOLESTEROL,CALCULATED 63 mg/dL (54-169); LDL/HDL RATIO 1.2 (0.5-3.0); TOTAL PROTEIN 5.9 g/dL (6.4-8.2); TRIGLYCERIDES 68 mg/dL (50-200); VLDL CHOLESTEROL 14 mg/dL (0-25)
[2020-10-18] MEDS: GABAPENTIN 100 MG CAPSULE PO SCH ×2 (07:44→20:28)
[2020-10-18] MEDS: CALCIUM/VITAMIN D3 250-125 TABLET PO SCH ×2 (07:44→20:28)
[2020-10-18] MEDS: ENALAPRIL 20MG TABLET PO SCH ×2 (07:45→20:28)
[2020-10-18] MEDS: HEPARIN 5,000 UNITS/ML, 1ML SQ SCH ×2 (07:56→15:05)
[2020-10-18] MEDS: PANTOPRAZOLE 40 MG IV IVPush SCH ×2 (07:56→20:27)
[2020-10-18] MEDS: D5%-0.9% NACL 1,000 ML IV SCH ×3 (07:56→21:43)
[2020-10-18 08:09] VITALS: BP 125/83
[2020-10-18 13:49] VITALS: BP 130/63
[2020-10-18 14:06] VITALS: BP 126/78
[2020-10-18] MEDS: ONDANSETRON 2MG/ML, 2ML IVPush PRN ×2 (15:26→21:42)
[2020-10-18] MEDS ORDERED: D5%-0.9% NACL 1,000 ML IV SCH (17:30)
[2020-10-18 18:58] VITALS: BP 106/80
[2020-10-19] MEDS: HEPARIN 5,000 UNITS/ML, 1ML SQ SCH ×2 (00:16→08:33)
[2020-10-19 00:52] VITALS: BP 109/74
[2020-10-19 07:15] VITALS: BP 155/71
[2020-10-19] MEDS: GABAPENTIN 100 MG CAPSULE PO SCH (08:30)
[2020-10-19] MEDS: ENALAPRIL 20MG TABLET PO SCH (08:30)
[2020-10-19] MEDS: CALCIUM/VITAMIN D3 250-125 TABLET PO SCH (08:31)
[2020-10-19] MEDS: PANTOPRAZOLE 40 MG IV IVPush SCH (08:32)
[2020-10-19] MEDS ORDERED: PANT40TA3 PO (10:31)
== END 2020-10-19 11:14 | disposition home or self-care (01) | DRG 371 ==
LOC: ED 19:41 → EDIP 20:32 → 5SO 21:56 → 3N 10-18 14:48 → DCLOUNGE 10-19 11:10
PROVIDERS: ADMIT Internal Medicine; ATTEND Internal Medicine
DX: A04.9 Bacterial intestinal infection, unspecified (principal); E43 Unspecified severe protein-calorie malnutrition; J96.10 Chronic respiratory failure, unspecified whether with hypoxia or hypercapnia; Z68.1 Body mass index [BMI] 19.9 or less, adult; E11.9 Type 2 diabetes mellitus without complications; F41.1 Generalized anxiety disorder; I11.0 Hypertensive heart disease with heart failure; I25.10 Atherosclerotic heart disease of native coronary artery without angina pectoris; I50.9 Heart failure, unspecified; J44.9 Chronic obstructive pulmonary disease, unspecified; K22.4 Dyskinesia of esophagus; K22.8 Other specified diseases of esophagus; M81.0 Age-related osteoporosis without current pathological fracture; Z96.649 Presence of unspecified artificial hip joint; Z96.659 Presence of unspecified artificial knee joint; K21.9 Gastro-esophageal reflux disease without esophagitis; R53.81 Other malaise; R13.10 Dysphagia, unspecified; D64.9 Anemia, unspecified; Z85.118 Personal history of other malignant neoplasm of bronchus and lung; Z86.73 Personal history of transient ischemic attack (TIA), and cerebral infarction without residual deficits; Z87.891 Personal history of nicotine dependence; Z90.710 Acquired absence of both cervix and uterus; Z98.51 Tubal ligation status
CPT/HCPCS: 36415; 71260; 74220; 80053; 80061; 81001; 83036; 83605; 83690; 83735; 84100; 84443; 84484; 85025; 87086; 87186; 93005; 96374; 99285; G0378; J1644; J2405; J7042; Q9967; C9113

== ENCOUNTER 2020-10-25 13:14 | Outpatient (CLI) | payer MEDICARE, MEDICAID ==
[~2020-10-25 13:14] MED LIST changes: +PANT40TA3 PO
== END 2020-10-25 23:59 | disposition home or self-care (01) ==
LOC: RAD 13:14
PROVIDERS: ATTEND Internal Medicine Gastroenterology
DX: I70.0 Atherosclerosis of aorta (principal); R13.14 Dysphagia, pharyngoesophageal phase; K59.00 Constipation, unspecified; Z90.49 Acquired absence of other specified parts of digestive tract
CPT/HCPCS: 74018

== ENCOUNTER → 2021-02-24 | Outpatient (CLI) | payer MEDICARE, MEDICAID ==
[~2021-02-24] MED LIST changes: -LACT1CAP40 PO; +LACT1CAP45 PO
== END | disposition home or self-care (01) ==
LOC: CFH 10:11
PROVIDERS: ATTEND Radiology Radiation Oncology
DX: C34.31 Malignant neoplasm of lower lobe, right bronchus or lung (principal); J43.9 Emphysema, unspecified; R91.1 Solitary pulmonary nodule; M43.8X4 Other specified deforming dorsopathies, thoracic region
CPT/HCPCS: 71250

== ENCOUNTER → 2021-02-26 | Outpatient (CLI) | payer MEDICARE, MEDICAID | END | disposition home or self-care (01) | LOC: ROC 09:23 | PROVIDERS: ATTEND Radiology Radiation Oncology | DX: C34.31 Malignant neoplasm of lower lobe, right bronchus or lung (principal); J43.9 Emphysema, unspecified | CPT/HCPCS: 99441; G2251 ==